=== PATIENT | female | born 1945 | race Caucasian/White ===

== ENCOUNTER 2017-09-27 16:01 | Emergency (ER) | payer MEDICARE ==
[~2017-09-27] VITALS: Ht 160 cm; Wt 76.2 kg
[2017-09-27] MEDS ORDERED: PULMICORT FLE180 MCG INH (20:12)
[2017-09-27] MEDS ORDERED: SYNTHROID100 MCG PO (20:12)
[2017-09-27] MEDS ORDERED: GABAPENTIN300 MG PO (20:13)
[2017-09-27] MEDS ORDERED: CYMBALTA60 MG PO (20:14)
[2017-09-27] MEDS ORDERED: ALLEGRA ALLERG180 MG PO (20:14)
== END 2017-09-27 20:48 | disposition home or self-care (01) ==
LOC: ED 16:01
DX: J11.1 Influenza due to unidentified influenza virus with other respiratory manifestations (principal); J45.909 Unspecified asthma, uncomplicated; Z86.711 Personal history of pulmonary embolism; Z88.0 Allergy status to penicillin; Z88.2 Allergy status to sulfonamides; Z79.899 Other long term (current) drug therapy
CPT/HCPCS: 99282